=== PATIENT | male | born 1970 | race Asian ===

== ENCOUNTER 2022-10-20 00:25 | Emergency (ER) | payer OTHER ==
[~2022-10-20] VITALS: Ht 185.4 cm; Wt 113.4 kg
== END 2022-10-20 02:28 ==
LOC: ED 00:25
PROC: 0HQ0XZZ Repair Scalp Skin, External Approach (ICD-10-PCS; principal; 2022-10-20)
DX: S01.01XA Laceration without foreign body of scalp, initial encounter (principal); W22.8XXA Striking against or struck by other objects, initial encounter
CPT/HCPCS: 99283